=== PATIENT | female | born 1980 | race Caucasian/White ===

== ENCOUNTER 2022-01-21 17:31 | Emergency (ER) | payer MEDICAID, SELFPAY ==
[2022-01-21 17:32] VITALS: BP 166/101; PULSE 87; O2SAT 99
[2022-01-21 17:33] VITALS: BP 166/101; PULSE 86; RESP 18; TEMP 36.7; O2SAT 99; BMI 31.8
--- NOTE | 2022-01-21 17:34 | PC.NURSE ---
EZRA CORONADO at
--- NOTE | 2022-01-21 17:41 | HMH.EDGENADL ---
ED Disposition Clinical Impression: Withdrawal symptoms, drug or narcotic Qualifiers: Substance type: opioid Qualified Code(s): F11.23 - Opioid dependence with withdrawal Disposition: Home, Self-Care Condition on Discharge: Good Instructions: DI for Drug or Alcohol Withdrawal Additional Instructions: You have been evaluated for opiate withdrawal syndrome. Please continue taking medications for symptom management. Continue taking Suboxone. Follow-up with your counselor at [facility]. Return to the emergency department at once for any new or worsening symptoms. Prescriptions: hydrOXYzine pamoate [Vistaril 25mg capsule] 25 mg PO Q6H PRN #24 cap PRN Reason: Tremors Transmission Status: Pending to [id number] Referrals: Provider,Referral, MD [Primary Care Provider] - Time of Disposition: 18:32 - Critical Care Critical Care Time: No Attestation: On , the high probability of a clinically significant, sudden or life threatening deterioration of the following system(s) required my full and direct attention, intervention and personal management. The time I documented below is in addition to time spent performing reported procedures but includes the following listed in this critical care notation. Medical Decision Making - Medical Records Medical records reviewed: Yes: I reviewed the patient's medical records. - Jim Inquiry Pt receiving controlled substance: No Vital Signs: 01/21/22 17:32 01/21/22 17:33 01/21/22 18:00 Temperature 98.1 F Temperature Source Oral Pulse Rate 87 69 Pulse Rate [Right Radial] 86 Respiratory Rate 18 Blood Pressure 166/101 H 138/80 Blood Pressure [Right Arm] 166/101 H Blood Pressure Mean [Right Arm] 122 Blood Pressure Source Automatic Cuff Automatic Cuff Blood Pressure Source [Right Arm] Automatic Cuff Blood Pressure Position Sitting Sitting Blood Pressure Position [Right Arm] Sitting 02 Sat by Pulse Oximetry 99 99 94 L Oxygen Delivery Method Room Air Room Air Orders (Tests/Meds): ED MEDICATIONS Generic Name Dose Route Start Last Admin Trade Name Freq PRN Reason Stop Dose Admin Hydroxyzine Pamoate 25 mg 01/21/22 17:36 01/21/22 18:23 Hydroxyzine Pamoate 25mg Capsule PO 02/20/22 17:35 25 mg Q6HP PRN Administration Itching Discontinued Medications Generic Name Dose Route Start Last Admin Trade Name Freq PRN Reason Stop Dose Admin Clonidine HCl 0.1 mg 01/21/22 17:36 01/21/22 18:23 Clonidine 0.1mg Tablet PO 01/21/22 17:37 0.1 mg ONCE ONE Administration Ondansetron HCl 4 mg 01/21/22 17:36 01/21/22 18:23 Ondansetron 4mg Odt SL 01/21/22 17:37 4 mg ONCE ONE Administration Medical Decision Narrative: In summary this is a 41-year-old female with history of opiate use disorder presenting to the emergency department with tremulousness, nausea, irritability. Patient clinically stable on arrival. Vital signs within normal limits. Will treat her symptoms. Patient given clonidine, Vistaril, Zofran On reassessment, patient feeling much better after medication. She continues to have some body aches and tremulousness. Able to tolerate oral intake without vomiting. She has Suboxone prescribed to her. Instructed she should continue taking it. Avoid narcotics, fentanyl, other opiates. She is established with [facility]. She has a counselor. She will contact them for follow-up. Given return precautions. Stable for discharge. General Adult HPI - General Stated complaint: withdraw, shaking Time Seen by Provider: 01/21/22 17:41 Mode of Arrival: EMS Source of Information: Patient Limitations: No Limitations - History of Present Illness HPI narrative: 41-year-old female presenting to the emergency department with nausea, tremulousness, symptoms of withdrawal. Symptoms started today. She was previously using a large amount of IV fentanyl. Last use was over the weekend,
[2022-01-21 18:00] VITALS: BP 138/80; PULSE 69; O2SAT 94
--- NOTE | 2022-01-21 18:17 | PC.NURSE ---
pt sleeping at this time
--- NOTE | 2022-01-21 18:27 | PC.NURSE ---
SENAIT Sears at BS
--- NOTE | 2022-01-21 18:32 | PC.NURSE ---
Father at BS
--- NOTE | 2022-01-21 18:36 | PC.NURSE ---
pt is very agitated, pt medicated per MAR. Pt reports she is hot and cold all over, pt given cool rag for her head, covered with warm blanket. Call light with in reach. Pt wanting to wear bp cuff at this time but does have pulse ox on.
--- NOTE | 2022-01-21 18:39 | PC.NURSE ---
Pt father to BS
[2022-01-21 20:07] VITALS: BP 138/80; PULSE 76; RESP 16; TEMP 36.1
== END 2022-01-21 20:07 | disposition home or self-care (01) ==
PROVIDERS: Emergency Provider Emergency Medicine
DX: F11.23 Opioid dependence with withdrawal (principal); M79.89 Other specified soft tissue disorders; R00.0 Tachycardia, unspecified; R11.0 Nausea; R25.1 Tremor, unspecified; M79.10 Myalgia, unspecified site; Z79.899 Other long term (current) drug therapy
CPT/HCPCS: 99283